=== PATIENT | female | born 1990 | race African-American/Black ===

== ENCOUNTER 2020-12-29 11:06 | Emergency (ER) | payer OTHER ==
[~2020-12-29] VITALS: Ht 160 cm; Wt 62.0 kg
[2020-12-29] MEDS ORDERED: IBUPROFEN 600MG TABLET PO ONE (12:00)
[2020-12-29] MEDS ORDERED: IBUP-2029 MT (13:15)
[2020-12-29 13:46] VITALS: BP 129/88
== END 2020-12-29 13:47 | disposition home or self-care (01) ==
LOC: ER 11:06
DX: M25.571 Pain in right ankle and joints of right foot (principal)
CPT/HCPCS: 73610; 73630; 99284